=== PATIENT | male | born 1965 | race Caucasian/White ===

== ENCOUNTER 2024-04-20 14:51 | Outpatient (OUT) | payer OTHER, SELFPAY | END 2024-04-20 14:52 | disposition home or self-care (01) | LOC: PST 14:52 | PROVIDERS: Visit Provider Surgery | DX: Z01.818 Encounter for other preprocedural examination (principal); Z12.11 Encounter for screening for malignant neoplasm of colon ==

== ENCOUNTER 2024-04-28 06:33 | Day surgery (SDC) | payer OTHER, SELFPAY ==
--- OUTSIDE RECORDS SUMMARY | 2024-04-28 06:39 | XMS_ITS | CCD ---
Author Organization [facility] Care Team Providers Care Fifth Grade Teacher Name Role Phone GE ODELL Consulting Unavailable OMKAR OLIVIER Admitting Unavailable OMKAR OLIVIER Attending Unavailable OMKRA OLIVIER Consulting Unavailable WILLIAM ANDRADE Consulting Unavailable HERNANDEZ MELCHOR Consulting Unavailable STEPHANIE ODELL Consulting Unavailable AMY ELLINGTON Primary Care Physician Massiel Philippe Unavailable DO Amy Ellington Primary Care Provider ZEHRA Gutierrez Attending Provider Shira Gutierrez Unavailable Amy Ellington Primary Care Unavaila Shira Vallejo Attending Unavailable Shira Gutierrez Admitting Unavailable Elinor Perea Attending Unavailable Elinor Perea Attending Unavailable Medications Current Medications Medication Drug Class(es) Dates Sig (Normalized) Sig (Original) [id number] 200 actuat albuterol 0.09 mg/actuat metered dose inhaler (1 source) beta2-Adrenergic Agonist Start: 2 take 2 puff(s) by inhalation every four hours as needed Albuterol Sulfate HFA 108 (90 Base) MCG/ACT 2 puffs as needed Inhalation every 4 hrs Jan, Active azithromycin 250 mg oral tablet (1 source) Macrolide Antimicrobial Start: 2 Azithromycin 250 MG 2 tablets on the first day, then 1 tablet daily for 4 days Orally Once a day for 5 day(s) Jan, Active buPROPion (1 source) Aminoketone Wellbutrin Activ e Fiber (2 sources) Start: 2 take 1 tablet by mouth four times daily Fiber Tabs mg, Oral, QID, Refills(s) 0, Constipation Start Date: 11/02/21 Status: Ordered methylPREDNISolone 4 mg oral tablet (2 sources) Corticosteroid Start: 5 methylPREDNISolone 4 MG as directed Orally Once a day for 6 days Jan, Active Multivitamins and Minerals (2 sources) Start: 7 Multivitamins and Minerals See Instructions, Refill(s) 0, Prophylaxis Start Date: 06/12/17 Status: Ordered naproxen 500 mg oral tablet (1 source) Nonsteroidal Anti-inflammatory Drug Start: 3 take 1 tablet by mouth every twelve hours at mealtime as needed Naproxen 500 MG 1 tablet with food or milk as needed Orally every 12 hrs for 7 days Dec, Active Completed/Discontinued Medications Medication Drug Class(es) Dates Sig (Normalized) Sig (Original) Ketorolac (2 sources) Nonsteroidal Anti-inflammatory Drug, Cyclooxygenase Inhibitor Start: 02-28-2015 Toradol per 15 mg Jan, 60 mg Toradol 30 mg/ml (1 source) Start: 12-20-2022 Toradol 30 mg/ml Dec, 30 mg triamcinolone acetonide 40 mg/ml injectable suspension (1 source) Corticosteroid Start: 12-20-2022 Kenalog-40 Dec, 40 mg Problems Active Problems Problem Classification Problem Date Documented Da te Episodic/Chronic Anal and rectal conditions (2 sources) Rectal polyp; Translations: [Rectal polyp] Onset: 01-02-2022 Episodic Asthma (1 source) Unspecified asthma with status asthmaticus; Translations: [UNS ASTHMA W/STATUS ASTHMATICUS] Onset: 08-31-2019 Chronic Fever of unknown origin (1 source) Fever, unspecified; Translations: [FEVER UNSPECIFIED] Onset: 08-31-2019 Episodic Fluid and electrolyte disorders (1 source) Dehydration; Translations: [DEHYDRATION] Onset: 08-31-2019 Episodic Hemorrhoids (2 sources) Hemorrhoids; Translations: [Unspecified hemorrhoids] Onset: 01-02-2022 Episodic Other and unspecified benign neoplasm (3 sources) Polyp of colon; Translations: [Polyp of colon] Onset: 12-14-2021 Episodic Other and unspecified benign neoplasm (2 sources) History of polyp of colon 11-02-2021 Episodic Other injuries and conditions due to external causes (2 sources) Injury, unspecified, initial encounter; Translations: [Injury, unspecified, initial encounter] Onset: 12-20-2022 Episodic Other lower respiratory disease (3 sources) Cough; Translations: [COUGH] Onset: 08-27-2019 Episodic Other lower respiratory disease (1 source) Hypoxemia; Translations: [HYPOXEMIA] Onset: 08-31-2019 Episodic Other lower respiratory disease (1 source) Pleurodynia; Translations: [Pleurodynia] Onset: 12-20-2022 Episodic Pneumonia (except that caused by tuberculosis or sexually transmitted disease) (1 source) Pneumonia, unspecified organism; Translations: [PNEUMONIA UNSPECIFIED ORGANISM] Onset: 08-31-2019 Episodic Substance-related disorders (1 source) Nicotine dependence, cigarettes, uncomplicated; Translations: [NICOTINE DEPEND CIGARETTES UNCOMP] Onset: 08-31-2019 Chronic Superficial injury; contusion (1 source) Contusion of right front wall of thorax, initial encounter Episodic Past or Other Problems Problem Classification Problem Date Documented Da te Episodic/Chronic Chronic obstructive pulmonary disease and bronchiectasis (1 source) Bronchitis, not specified as acute or chronic Onset: 02-15-2022 Resolved: 02-15-2022 Episodic Results Test Name Value Interpretation Reference Range Facility XR ribs RT min 3V w CXR1V*on 12-20-2022 XR ribs RT min 3V w CXR1V* [facility] [employer] Other XR ribs RT min 3V w CXR1V* [facility] [employer] Other XR ribs RT min 3V w CXR1V* [address] [place] [address] [employer] Other XR ribs RT min 3V w CXR1V* [place] [address] [employer] Other XR ribs RT min 3V w CXR1V* XRay Report [employer] Other XR ribs RT min 3V w CXR1V* Signed [employer] Other XR ribs RT min 3V w CXR1V* Patient: Phu Dejesus MR#: [id number] [employer] Other XR ribs RT min 3V w CXR1V* 97 [employer] Other XR ribs RT min 3V w CXR1V* : 1965 Acct:[id number] [employer] Other XR ribs RT min 3V w CXR1V* Age/Sex: 57 / M ADM Date: 12/20/22 [employer] Other XR ribs RT min 3V w CXR1V* Loc: [facility] Room: Type: [facility] [employer] Other XR ribs RT min 3V w CXR1V* Attending Dr: Shira Gutierrez [facility] [employer] Other XR ribs RT min 3V w CXR1V* Copies to: Shira Gutierrez DOCUMENTATION IMPROVEMENT SPECIALIST [employer] Other XR ribs RT min 3V w CXR1V* Ordering Provider: Shira Gutierrez APRN [employer] Other XR ribs RT min 3V w CXR1V* Date of Service: 12/20/22 [employer] Other XR ribs RT min 3V w CXR1V* XR/XR ribs RT min 3V w CXR1V*: Injury [employer] Other XR ribs RT min 3V w CXR1V* PA CHEST WITH RIGHT RIBS: [employer] Other XR ribs RT min 3V w CXR1V* CLINICAL HISTORY: Patient fell in the shower 2 days ago and has continued right lower anterior rib [employer] Other XR ribs RT min 3V w CXR1V* pain, greater with movement or cough. [employer] Other XR ribs RT min 3V w CXR1V* COMPARISON: None [employer] Other XR ribs RT min 3V w CXR1V* The chest film shows no infiltrate, effusion or pneumothorax. The cardiac, hilar and mediastinal [employer] Other XR ribs RT min 3V w CXR1V* silhouettes are within normal limits. No vascular congestion is seen. [employer] Other XR ribs RT min 3V w CXR1V* AP and both oblique views of the right ribs show no obvious acute displaced fractures or bony [employer] Other XR ribs RT min 3V w CXR1V* destruction. [employer] Other XR ribs RT min 3V w CXR1V* XR/XR ribs RT min 3V w CXR1V* [employer] Other XR ribs RT min 3V w CXR1V* IMPRESSION: [employer] Other XR ribs RT min 3V w CXR1V* NO DEFINITE ACUTE FINDINGS. [employer] Other XR ribs RT min 3V w CXR1V* Impression dictated by: Mavis Goff M.D.12/20/2022 11:51 AM [employer] Other XR ribs RT min 3V w CXR1V* Dictation Location: [place] [address] [employer] Other XR ribs RT min 3V w CXR1V* Transcribed By: ROBBIN 12/20/22 [facility] [employer] Other XR ribs RT min 3V w CXR1V* Dictated By: Mavis Goff MD 12/20/22 1148 [employer] Other XR ribs RT min 3V w CXR1V* Signed By: [employer] Other XR ribs RT min 3V w CXR1V* 12/20/22 [facility] [employer] Other XR ribs RT min 3V w CXR1V* [facility] [place] [address] [place] [address] XRay Report Signed Patient: Phu Dejesus JR MR#: [id number] 97 : 1965 Acct:[id number] Age/Sex: 57 / M ADM Date: 12/20/22 Loc: [facility] Room: Type: [facility] Attending Dr: Shira Gutierrez APRN Copies to: Shira Gutierrez APRN Ordering Provider: Shira Gutierrez APRN Date of Service: 12/20/22 XR/XR ribs RT min 3V w CXR1V*: Injury PA CHEST WITH RIGHT RIBS: CLINICAL HISTORY: Patient fell in the shower 2 days ago and has continued right lower anterior rib pain, greater with movement or cough. COMPARISON: None The chest film shows no infiltrate, effusion or pneumothorax. The cardiac, hilar and mediastinal silhouettes are within normal limits. No vascular congestion is seen. AP and both oblique views of the right ribs show no obvious acute displaced fractures or bony destruction. XR/XR ribs RT min 3V w CXR1V* IMPRESSION: NO DEFINITE ACUTE FINDINGS. Impression dictated by: Mavis Goff M.D.12/20/2022 11:51 AM Dictation Location: [place] [address] Transcribed By: [facility] 12/20/22 1151 Dictated By: Mavis Goff MD 12/20/22 1148 Signed By: 12/20/22 1151 [facility] Reminderson 01-03-2022 Reminders -- From: Elinor Perea CNP To: Yokasta Peterson; Sent: 01/02/2022 15:33:05 EDT Show up: 01/02/2022 15:33:00 EDT Subject: Ambulatory Reminder Reminder/Recall Colonoscopy in 2024. [facility] Gastroenterology Office/Clin ic Noteon 01-02-2022 Gastroenterology Office/Clinic Note Chief Complaint Review results HPI Staff Patient is here today to review colonoscopy results. History of Present Illness Patient is a 56-year-old male who presents for follow-up from colonoscopy completed 12/14/[address] Fair. Patient with history of colon polyps. Colonoscopy completed 12/14/[address] Fair revealed 2 tubular adenomas removed from ascending colon, 2 tubular adenomas removed from rectum, tubular adenoma removed from transverse colon, hemorrhoids - Dr. Fair recommended for patient to have repeat colonoscopy in 3 years (2024). During today's visit, patient reports he is doing well. Denies having any GI complaints. Review of Systems ROS - Provider Constitutional: no fever, no chills. Skin: no Jaundice. ENMT: Denies dysphagia and heartburn. Respiratory: no shortness of breath. Cardiovascular: no chest pain. Gastrointestinal: no nausea, no vomiting, no diarrhea, no GI bleeding. Physical Exam Vitals & Measurements T: 36.2 ?C(Temporal Artery) HR: 91(Peripheral) BP: 134/84 SpO2: 98% HT: 169 cm HT: 169.0 cm WT: 81.6 kg WT: 81.6 kg BMI: 28.57 General: Well developed, well nourished, in no acute distress Head: Normocephalic/atrau matic Lungs: Normal respiratory effort and clear to auscultation Cardio: Regular rate and rhythm, normal S1 and S2, no murmur, no rub Abdomen: Soft, non-distended, non-tender. Normoactive bowel sounds present in all 4 abdominal quadrants, bilaterally. Mental Status: Alert and oriented x3. Normal mood and affect Assessment/Plan BP elevated at 142/89, BP rechecked by staff and stable at 134/84. 1. Colon polyps (K63.5: Polyp of colon) Colonoscopy completed 12/14/[address] Fair revealed 2 tubular adenomas removed from ascending colon, 2 tubular adenomas removed from rectum, tubular adenoma removed from transverse colon, hemorrhoids. Patient to have repeat colonoscopy in 3 years (2024). Educated regarding use of fiber daily for hemorrhoids and to potentially assist in reducing risk of future colon polyps. 2. Rectal polyp (K62.1: Rectal polyp) Same as above plan of care. See #1. 3. Hemorrhoids (K64.9: Unspecified hemorrhoids) Same as above plan of care. See #1. Follow-up With When Contact Information Elinor Perea CNP Within 1 year, only if needed Additional Instructions: Patient Education High-Fiber Diet Hemorrhoids Colon Polyps Problem List/Past Medical History Ongoing Colon polyps Hemorrhoids History of colon polyps Rectal polyp Historical No qualifying data Procedure/Surgical History Colonoscopy (12/14/2021). Medications Fiber Tabs, Oral, QID Multivitamins and Minerals, See Instructions Allergies No Known Allergies Social History Tobacco 10 or more cigarettes (1/2 pack or more)/day in last 30 days Tobacco Use:. Never Smokeless Tobacco Use:. Cigarettes, 01/02/2022 Family History Family history is negative Immunizations Vaccine Date Status influenza virus vaccine, inactivated 06/02/2021 Recorded Normal [facility] Comment on above: Result Comment: Elec tronically Signed By: Eliazar ASTORGA, Elinor Huntley\.br\Date and Time Signed: 01/02/22 15:36 EDT Patient Educationon 01-03-20 Patient Education Endocrinology High-Fiber Diet Fiber, also called dietary fiber, is a type of carbohydrate that is found in fruits, vegetables, whole grains, and beans. A high-fiber diet can have many health benefits. Your health care provider may recommend a high-fiber diet to help: ? Prevent constipation. Fiber can make your bowel movements more regular. ? Lower your cholesterol. ? Relieve the following conditions: ? Swelling of veins in the anus (hemorrhoids). ? Swelling and irritation (inflammation) of specific areas of the digestive tract (uncomplicated diverticulosis). ? A problem of the large intestine (colon) that sometimes causes pain and diarrhea (irritable bowel syndrome, IBS). ? Prevent overeating as part of a weight-loss plan. ? Prevent heart disease, type 2 diabetes, and certain cancers. What is my plan? The recommended daily fiber intake in grams (g) includes: ? 38 g for men age 50 or younger. ? 30 g for men over age 50. ? 25 g for women age 50 or younger. ? 21 g for women over age 50. You can get the recommended daily intake of dietary fiber by: ? Eating a variety of fruits, vegetables, grains, and beans. ? Taking a fiber supplement, if it is not possible to get enough fiber through your diet. What do I need to know about a high-fiber diet? ? It is better to get fiber through food sources rather than from fiber supplements. There is not a lot of research about how effective supplements are. ? Always check the fiber content on the nutrition facts label of any prepackaged food. Look for foods that contain 5 g of fiber or more per serving. ? Talk with a diet and nutrition faculty member (dietitian) if you have questions about specific foods that are recommended or not recommended for your medical condition, especially if those foods are not listed below. ? Gradually increase how much fiber you consume. If you increase your intake of dietary fiber too quickly, you may have bloating, cramping, or gas. ? Drink plenty of water. Water helps you to digest fiber. What are tips for following this plan? ? Eat a wide variety of high-fiber foods. ? Make sure that half of the grains that you eat each day are whole grains. ? Eat breads and cereals that are made with whole-grain flour instead of refined flour or white flour. ? Eat brown rice, bulgur wheat, or millet instead of white rice. ? Start the day with a breakfast that is high in fiber, such as a cereal that contains 5 g of fiber or more per serving. ? Use beans in place of meat in soups, salads, and pasta dishes. ? Eat high-fiber snacks, such as berries, raw vegetables, nuts, and popcorn. ? Choose whole fruits and vegetables instead of processed forms like juice or sauce. What foods can I eat? Fruits Berries. Pears. Apples. Oranges. Avocado. Prunes and raisins. Dried figs. Vegetables Sweet potatoes. Spinach. Kale. Artichokes. Cabbage. Broccoli. Cauliflower. Green peas. Carrots. Squash. Grains Whole-grain breads. Multigrain cereal. Oats and oatmeal. Brown rice. Barley. Bulgur wheat. Millet. Quinoa. Bran muffins. Popcorn. [place] wafer crackers. Meats and other proteins [place], kidney, and mccord beans. Soybeans. Split peas. Lentils. Nuts and seeds. Dairy Fiber-fortified yogurt. Beverages Fiber-fortified soy milk. Fiber-fortified orange juice. Other foods Fiber bars. The items listed above may not be a complete list of recommended foods and beverages. Contact a dietitian for more options. What foods are not recommended? Fruits Fruit juice. Cooked, strained fruit. Vegetables Fried potatoes. Canned vegetables. Well-cooked vegetables. Grains White bread. Pasta made with refined flour. White rice. Meats and other proteins Fatty cuts of meat. Fried chicken or fried fish. Dairy Milk. Yogurt. Cream cheese. Sour cream. Fats and oils [place]. Beverages Soft drinks. Other foods Cakes and pastries. The items listed above may not be a complete list of foods and beverages to avoid. Contact a dietitian for more information. Summary ? Fiber is a type of carbohydrate. It is found in fruits, vegetables, whole grains, and beans. ? There are many health benefits of eating a high-fiber diet, such as preventing constipation, lowering blood cholesterol, helping with weight loss, and reducing your risk of heart disease, diabetes, and certain cancers. ? Gradually increase your intake of fiber. Increasing too fast can result in cramping, bloating, and gas. Drink plenty of water while you increase your fiber. ? The best sources of fiber include whole fruits and vegetables, whole grains, nuts, seeds, and beans. This information is not intended to replace advice given to you by your health care provider. Make sure you discuss any questions you have with your health care provider. Document Released: 08/19/2006 Document Revised: 06/23/2018 Document Reviewed: 06/23/2018 [employer] Patient Education ? 2020 [employer]. Gastro (more content not included)... Normal [facility] SHORT STAY SUMMARYon 019 SHORT STAY SUMMARY SHORT STAY SUMMARY Discharge Date: 08-27-19 CHIEF COMPLAINT: Fever, cough, shortness of breath. HISTORY OF PRESENT ILLNESS: The patient's problems began on Saturday with cough, fever, and chills. He came to the ER influenzae were negative but he was in status asthmaticus and felt to have atypical pneumonia and was put into an observation bed. PAST MEDICAL HISTORY: None. PAST SURGICAL HISTORY: Status post appendectomy. SOCIAL HISTORY: Positive for smoking, occasional ethanol, denies drugs or marijuana. Is employed at [employer]. FAMILY HISTORY: Noncontributory. REVIEW OF SYSTEMS: GENERAL: Is having the fevers and chills. SKIN: No pruritus or icterus. HEENT: No migraines, scintillating scotomata, amaurosis fugax, diplopia, tinnitus, vertigo, epistaxis, sore throat, sore neck. CHEST: Shortness of breath and cough, no sputum production. CARDIOVASCULAR: No history of heart disease. ABDOMEN: No nausea, vomiting, diarrhea, melena, hematochezia. : Denies dysuria, hematuria, or problems starting the stream. EXTREMITIES: No edema. NEURO: No seizures or epilepsy. PHYSICAL EXAM: GENERAL:On admission he was in status asthmaticus, currently WD, WN in no acute distress. SKIN:Pale, good turgor. LYMPH:None palpable. HEENT: Head benign. Eyes benign. TMs clear. Nose clear. Throat clear. CHEST:Shows prolonged expiratory, but no wheezing, rhonchi or rubs, no rales. CARDIOVASCULAR:Hear t rate is still slightly tachycardic at 90. Regular rate and rhythm, no murmurs. Normal and symmetrical peripheral pulses, no JVD. ABDOMEN:Soft. Nondistended. Nontender. No organomegaly. No palpable masses. EXTREMITIES:No edema. NEURO:Grossly within normal limits. ASSESSMENT: 1. The patient with atypical pneumonia, improved overnight. At this point was felt safe to discharge to home. DISCHARGE DIAGNOSIS: 1. Atypical pneumonia. 2. Status asthmaticus. 3. Dehydration. OPERATIONS: None. COMPLICATIONS: None. DISCHARGE CONDITION: Good. DISCHARGE PLAN: ACTIVITY:No work until September 03. FOLLOWUP: He is to see his primary care physician prior to that. MEDICATIONS: He will be on levofloxacin 500 mg once a day for a total of 10 days. Prednisone 30 mg in the morning on Saturday and Saturday, albuterol 1 tsp qh8 for the next three days. He is to return to the hospital if he gets worse and that was explained or as needed and that was explained. [facility] Signed and Approved by: DR OMKAR OLIVIER . 08/31/2019 07:36:00 Normal [facility] CBC AUTO DIFFon 08-26-2019 Basophils (Bld) [#/Vol] 0.0 103/ul Normal 0.0-0.1 [facility] Comment on above: Performed By: #### C BC #### [facility] [address], [place] [address] Clau Gamble Basophils/100 WBC (Bld) 0.2 % Normal 0.2-2.0 [facility] Comment on above: Performed By: #### C BC #### [facility] [address] [place], [place] [id number] Clau Mavis Eosinophils (Bld) [#/Vol] 0.1 103/ul Normal 0.0-0.7 [facility] Comment on above: Performed By: #### C BC #### [facility] [address] [place], [place] [id number] Clau Mavis Eosinophils/100 WBC (Bld) 0.6 % Critically low 0.9-7.0 [facility] Comment on above: Performed By: #### C BC #### [facility] [address] [place], [place] [id number] Clau Mavis Erythrocyte distribution width (RBC) [Ratio] 12.4 % Normal 11.0-15.0 [facility] Comment on above: Performed By: #### C BC #### [facility] [address] [place] [address] Clau Mavis Hematocrit (Bld) [Volume fraction] 38.4 % Critically low 42.0-54.0 [facility] Comment on above: Performed By: #### C BC #### [facility] [address] [place], [place] [id number] Clau Mavis Hemoglobin (Bld) [Mass/Vol] 13.4 g/dL Critically low 14.0-18.0 [facility] Comment on above: Performed By: #### C BC #### [facility] [address] [place] [address] Clau Mavis IG # 0.03 10e3/ul Normal 0.00-0.03 [facility] Comment on above: Performed By: #### C BC #### [facility] [address] [place], [place] [id number] Clau Mavis IG % 0.3 % Normal 0.0-0.5 [facility] Comment on above: Performed By: #### C BC #### [facility] [address] [place], [place] [id number] Clau Mavis Lymphocytes (Bld) [#/Vol] 0.7 103/ul Critically low 1.2-3.8 [facility] Comment on above: Performed By: #### C BC #### [facility] [address], [place] [address] Clau Mavis Lymphocytes/100 WBC (Bld) 8.1 % Critically low 20.5-60.0 [facility] Comment on above: Performed By: #### C BC #### [facility] [address], [place] [address] Clau Mavis MANUAL DIFF REQ NO Normal [facility] Comment on above: Performed By: #### C BC #### [facility] [address], [place] [address] Clau Mavis MCH (RBC) [Entitic mass] 30.2 pg Normal 25.9-34.0 [facility] Comment on above: Performed By: #### C BC #### [facility] [address] [place] [id number] Clauemelia Kearneyen MCHC (RBC) [Mass/Vol] 34.9 g/dL Normal 29.9-35.2 [facility] Comment on above: Performed By: #### C BC #### [facility] [address], [place] [address] Clau Mavis MCV (RBC) [Entitic vol] 86.5 fL Normal 80.0-94.0 [facility] Comment on above: Performed By: #### C BC #### [facility] [address], [place] [address] Clau Mavis Monocytes (Bld) [#/Vol] 1.2 103/ul Critically high 0.3-0.8 [facility] Comment on above: Performed By: #### C BC #### [facility] [address], [place] [address] Clau Mavis Monocytes/100 WBC (Bld) 13.1 % Critically high 1.7-12.0 [facility] Comment on above: Performed By: #### C BC #### [facility] [address], [place] [address] Clau Mavis Neutrophils (Bld) [#/Vol] 6.9 103/ul Critically high 1.4-6.5 [facility] Comment on above: Performed By: #### C BC #### [facility] [address] [place] [id number] Clau Gamble Neutrophils/100 WBC (Bld) 77.7 % Critically high 43.0-75.0 [facility] Comment on above: Performed By: #### C BC #### [facility] [address] [place], [place] [id number] Clau Gamble Platelet mean volume (Bld) [Entitic vol] 9.2 fL Critically low 9.5-13.5 [facility] Comment on above: Performed By: #### C BC #### [facility] [address] [address] [place], [place] [id number] Clau Gamble Platelets (Bld) [#/Vol] 177 103/ul Normal 150-450 [facility] Comment on above: Performed By: #### C BC #### [facility] [address] [place], [place] [id number] Clau Gamble RBC (Bld) [#/Vol] 4.44 106/ul Critically low 4.70-6.10 Th [facility] [place] Comment on above: Performed By: #### C BC #### [facility] [address] [place], [place] [id number] Clau Gamble WBC (Bld) [#/Vol] 8.8 103/ul Normal 4.0-11.0 [facility] Comment on above: Performed By: #### C BC #### [facility] [address] [place], [place] [id number] Clau Gamble D-DIMERon 08-26-2019 D-DIMER COMMENTS SEE BELOW Normal [facility] Comment on above: Result Comment: Incr eases in D-Dimer concentration observed with thromboembolic events can be variable due to localization, size, and age of the thrombus. Therefore, a thromboembolic event cannot be diagnosed with certainty on the basis of the reference range. D-Dimers may also be elevated for a variety of disorders including: advanced age, , coronary disease, cancer, liver disease, infection, inflammation, hematoma, DIC, trauma, post-surgery, diabetes, thrombolytic or anticoagulant therapy, stress, and generalizd hospitalization. Performed By: #### D DIM #### [facility] [address] [place] [address] Clau Gamble Fibrin D-dimer FEU IA (Bld) [Mass/Vol] 0.27 ug/mL Normal 0.19-0.50 [facility] Comment on above: Performed By: #### D DIM #### [facility] [address] [place] [address] Clau Gamble INFLUENZA A AND B AGon 08-26 INFLUANEGH SEE BELOW Normal [facility] Comment on above: Result Comment: Nega tive for Flu A protein angiten. Infection due to Flu A cannot be ruled out. Flu A angiten in the sample may be below the detection limit of the test. Performed By: #### I NFLUAB #### [facility] [address] [place] [address] Clau Gamble INFLUBNEGH SEE BELOW Normal [facility] Comment on above: Result Comment: Nega tive for Flu B protein antigen. Infection due to Flu B cannot be ruled out. Flu B antigen in the sample may be below the detection limit of the test. Performed By: #### I NFLUAB #### [facility] [address] [place] [address] Clau Gamble INFLUENZA A AG Negative Normal NEGATIVE SEE COMMENT [facility] Comment on above: Performed By: #### I NFLUAB #### [facility] [address] [place] [address] Clau Gamble INFLUENZA B AG Negative Normal NEGATIVE SEE COMMENT [facility] Comment on above: Performed By: #### I NFLUAB #### [facility] [address] [place] [address] Clau Gamble INTERNAL CONTROLS Within Normal Limits Normal Within Normal Limits [facility] Comment on above: Performed By: #### I NFLUAB #### [facility] [address] [place] [address] Clau Gamble LACTATE/LACTIC ACIDon 2018 Lactate [Moles/Vol] 1.2 mmol/L Normal 0.7-2.1 [facility] Comment on above: Performed By: #### L ACT #### [facility] [address] [place] [address] Clau Gamble PROCALCITONINon 08-26-2019 PCT header 1 SEE BELOW Normal [facility] Comment on above: Result Comment: PCT <0.5ng/mL: Systemic infection (sepsis) is not likely, local bacterial infection possible, low risk for progression to severe systemic infection (severe sepsis) Performed By: #### P RL #### [facility] [address] [place] [address] Clauemelia Kearneyen PCT header 2 SEE BELOW Normal [facility] Comment on above: Result Comment: PCT >/=0.5 and <2 ng/mL: Systemic infection (sepsis) is possible, moderate risk for progression to severe systemic infection (severe sepsis) Performed By: #### P RL #### [facility] [address] [place] [address] Clauemelia Gamble PCT header 3 SEE BELOW Normal [facility] Comment on above: Result Comment: PCT >/=2.0 and <10 ng/mL: Systemic infection (sepsis) is likely, unless other causes are known, high risk for progession to severe systemic infection(severe sepsis) Performed By: #### P RL #### [facility] [address] [place] [address] Clauemleia Gamble PCT header 4 SEE BELOW Normal [facility] Comment on above: Result Comment: PCT >/= 10 ng/mL: Important systemic inflammatory response almost exclusively due to severe bacterial sepsis or septic shock, high likelihood of severe sepsis or septic shock Performed By: #### P RL #### [facility] [address] [place] [address] Clau Gamble PROCALCITONIN <0.05 Normal 0.00-0.50 [facility] Comment on above: Performed By: #### P RL #### [facility] [address] [place] [address] Clau Gamble PROF 14(COMP METB)on 019 Albumin [Mass/Vol] 3.6 g/dL Normal 3.5-5.0 [facility] Comment on above: Performed By: #### T ROP, CMP #### [facility] [address] [id number] Clau Mavis Albumin/Globulin [Mass ratio] 1.2 {ratio} Normal [facility] Comment on above: Performed By: #### T ROP, CMP #### [facility] [address] [id number] Clau Mavis ALP [Catalytic activity/Vol] 62 U/L Normal 38-126 [facility] Comment on above: Performed By: #### T ROP, CMP #### [facility] [address] [address] Clau Mavis ALT [Catalytic activity/Vol] 30 U/L Normal 21-72 [facility] Comment on above: Performed By: #### T ROP, CMP #### [facility] [address] [place] [address] Clau Mavis Anion gap [Moles/Vol] 13.3 mmol/L Normal [facility] Comment on above: Performed By: #### T ROP, CMP #### [facility] [address] [place] [address] Clau Mavis AST [Catalytic activity/Vol] 22 U/L Normal 17-59 [facility] Comment on above: Performed By: #### T ROP, CMP #### [facility] [address] [place] [address] Clau Mavis Bilirubin Ql (U) 0.3 mg/dL Normal 0.2-1.3 [facility] Comment on above: Performed By: #### T ROP, CMP #### [facility] [address] [place], [place] [address] Clau Mavis Calcium [Mass/Vol] 9.0 mg/dL Normal 8.4-10.2 [facility] Comment on above: Performed By: #### T ROP, CMP #### [facility] [address] [place], [place] [address] Clau Mavis Chloride [Moles/Vol] 100 mmol/L Normal 98-107 [facility] Comment on above: Performed By: #### T ROP, CMP #### [facility] [address] [address] Clau Mavis CO2 [Moles/Vol] 24.9 mmol/L Normal 22.0-30.0 [facility] Comment on above: Performed By: #### T ROP, CMP #### [facility] [address] [place] [address] Clau Mavis Creatinine [Mass/Vol] 1.18 mg/dL Normal 0.66-1.25 [facility] Comment on above: Performed By: #### T ROP, CMP #### [facility] [address] [place] [address] Clau Mavis EGFR-AF DOMINICAN >60 Normal >=60 [facility] Comment on above: Performed By: #### T ROP, CMP #### [facility] [address] [place] [address] Clau Mavis EGFR-NON AF DOMINICAN >60 Normal >=60 [facility] Comment on above: Performed By: #### T ROP, CMP #### [facility] [address] [place] [address] Clau Mavis Globulin (S) [Mass/Vol] 3.0 g/dL Normal [facility] Comment on above: Performed By: #### T ROP, CMP #### [facility] [address] [place] [address] Clau Mavis Glucose [Mass/Vol] 101 mg/dL Normal 74-106 [facility] Comment on above: Performed By: #### T ROP, CMP #### [facility] [address] [place] [address] Clau Mavis Potassium [Moles/Vol] 4.2 mmol/L Normal 3.4-5.0 [facility] Comment on above: Performed By: #### T ROP, CMP #### [facility] [address] [place] [address] Clau Mavis Protein [Mass/Vol] 6.6 g/dL Normal 6.1-8.2 [facility] Comment on above: Performed By: #### T ROP, CMP #### [facility] [address] [place] [address] Clau Mavis Sodium [Moles/Vol] 134 mmol/L Critically low 137-145 [facility] Comment on above: Performed By: #### T SURI, CMP #### [facility] [address] [id number] Clau Gamble Urea nitrogen [Mass/Vol] 15.0 mg/dL Normal 9.0-20.0 [facility] Comment on above: Performed By: #### T SURI, CMP #### [facility] [address] [id number] Clau Gamble Urea nitrogen/Creatinine [Mass ratio] 12.7 mg/mg Normal [facility] Comment on above: Performed By: #### T SURI, CMP #### [facility] [address] [place], [place] [address] Clau Gamble TROPONIN - Ion 08-26-2019 Troponin I.cardiac [Mass/Vol] ng/mL Normal <=0.034 [facility] Comment on above: Performed By: #### Natalia MCCORD, CMP #### [facility] [address] [place], [place] [address] Clau Gamble Troponin I.cardiac [Mass/Vol] SEE BELOW Normal [facility] Comment on above: Result Comment: <0.0 34 ng/ml NEGATIVE 0.034-0.119 INDETERMINATE 0.120 AMI CUT OFF Performed By: #### T SURI, CMP #### [facility] [address] [place], [place] [address] Clau Gamble XR CHEST 2 Von 08-26-2019 XR CHEST 2 V Patient: PHU DEJESUS Exam Date: 08/26/2019 : 1965 Gender:M Ordering : SHELLEY ROSA Admission #: [id number] Family : DR AMY ELLINGTON M.D. Order #: [id number] CLICK HERE TO VIEW EXAM RADIOLOGY REPORT PROCEDURE: RADIOGRAPH CHEST 2 VIEWS COMPARISON: None. INDICATIONS: Acute cough and fever for 1 day FINDINGS: LUNGS: No significant pulmonary parenchymal abnormalities. VASCULATURE: No increased pulmonary vasculature. PLEURA: No pneumothorax, effusion, or pleural thickening. CARDIAC: No cardiomegaly or cardiac silhouette abnormality. MEDIASTINUM: No visible mass or adenopathy. BONES: No fracture or visible bone lesion. OTHER: Negative. CONCLUSION: No acute disease. Dictated by: William Andrade M.D. on 08/27/2019 at 00:11 Approved by: William Andrade M.D. on 08/27/2019 at 00:13 Normal [facility] Vital Signs Date Time Vital Sign Value Performing Clinician Facility 12-20-2022 11:50-0400 Body height 167.64 cm Shira Gutierrez Other [facility] Other 12-20-2022 11:50-0400 Body mass index (BMI) [Ratio] 29.53 kg/m2 Shira Gutierrez Other [facility] Other 12-20-2022 11:50-0400 Body temperature 98 [degF] Shira Gutierrez Other [facility] Other 12-20-2022 11:50-0400 Body weight 83.01 kg Shira Gutierrez Other [facility] Other 12-20-2022 11:50-0400 Diastolic blood pressure 93 mm[Hg] Shira Gutierrez Other [facility] Other 12-20-2022 11:50-0400 Respiratory rate 18 /min Shira Gutierrez Other [facility] Other 12-20-2022 11:50-0400 SaO2% (BldA) [Mass fraction] 97 % Shira Gutierrez Other [facility] Other 12-20-2022 11:50-0400 Systolic blood pressure 145 mm[Hg] Shira Gutierrez Other [facility] Other 02-15-2022 13:30-0400 Body height 167.64 cm Massiel Philippe Other [facility] Other 02-15-2022 13:30-0400 Body mass index (BMI) [Ratio] 27.44 kg/m2 Massiel Philippe Other [facility] Other 02-15-2022 13:30-0400 Body temperature 96.6 [degF] Massiel Philippe Other [facility] Other 02-15-2022 13:30-0400 Body weight 77.11 kg Massiel Philippe Other [facility] Other 02-15-2022 13:30-0400 Respiratory rate 18 /min Massiel Philippe Other [facility] Other 02-15-2022 13:30-0400 SaO2% (BldA) [Mass fraction] 94 % Massiel Philippe Other [facility] Other 01-02-2022 15:26-0400 Diastolic blood pressure 84 mm[Hg] Elinor Carrmetz [facility] 01-02-2022 15:26-0400 Mean blood pressure 101 mm[Hg] Elinor Eliazar [facility] 01-02-2022 15:26-0400 Systolic blood pressure 134 mm[Hg] Elinor Eliazar [facility] 01-02-2022 15:22-0400 Blood Pressure Location Elinor Eliazar [facility] 01-02-2022 15:22-0400 Body temperature 97.16 [degF] Elinor Carrmetz [facility] 01-02-2022 15:22-0400 Diastolic blood pressure 89 mm[Hg] Elinor Carrmetz [facility] 01-02-2022 15:22-0400 Heart rate 91 /min Elinoryaneli CarrEliazar [facility] 01-02-2022 15:22-0400 SaO2% (BldA) [Mass fraction] 98 % Elinor Carrmetz [facility] 01-02-2022 15:22-0400 Systolic blood pressure 142 mm[Hg] Elinor Carrmetz [facility] 12-14-2021 10:20-0400 Blood Pressure Location Pizarro SALAM [facility] 12-14-2021 10:20-0400 Diastolic blood pressure 88 mm[Hg] Pizarro SALAM [facility] 12-14-2021 10:20-0400 Heart rate 79 /min Pizarro SALAM [facility] 12-14-2021 10:20-0400 Respiratory rate 19 /min Pizarro SALAM [facility] 12-14-2021 10:20-0400 SaO2% (BldA) [Mass fraction] 98 % Pizarro SALAM [facility] 12-14-2021 10:20-0400 Systolic blood pressure 118 mm[Hg] Pizarro SALAM [facility] 12-14-2021 10:10-0400 Blood Pressure Location Pizarro SALAM [facility] 12-14-2021 10:10-0400 Diastolic blood pressure 82 mm[Hg] Pizarro SALAM [facility] 12-14-2021 10:10-0400 Heart rate 85 /min Pizarro SALAM [facility] 12-14-2021 10:10-0400 Respiratory rate 20 /min Pizarro SALAM [facility] 12-14-2021 10:10-0400 SaO2% (BldA) [Mass fraction] 99 % Pizarro SALAM [facility] 12-14-2021 10:10-0400 Systolic blood pressure 117 mm[Hg] Pizarro SALAM [facility] 12-14-2021 10:05-0400 Blood Pressure Location Pizarro SALAM [facility] 12-14-2021 10:05-0400 Diastolic blood pressure 72 mm[Hg] Pizarro SALAM [facility] 12-14-2021 10:05-0400 Heart rate 77 /min Pizarro SALAM [facility] 12-14-2021 10:05-0400 Respiratory rate 13 /min Pizarro SALAM [facility] 12-14-2021 10:05-0400 SaO2% (BldA) [Mass fraction] 100 % Pizarro SALAM [facility] 12-14-2021 10:05-0400 Systolic blood pressure 98 mm[Hg] Pizarro SALAM [facility] 12-14-2021 09:57-0400 Body temperature 97.34 [degF] Pizarro SALAM [facility] 12-14-2021 09:55-0400 Respiratory rate 16 /min Pizarro SALAM [facility] 12-14-2021 09:50-0400 Respiratory rate 15 /min Pizarro SALAM [facility] 12-14-2021 09:45-0400 Respiratory rate 14 /min Pizarro SALAM [facility] 12-14-2021 09:24-0400 Body temperature 97.16 [degF] Pizarro SALAM [facility] Encounters Encounter Date Encounter Type Care Provider Facility Start: 01-02-2023 [facility] Start: 12-20-2022 Office outpatient visit 15 minutes Shira Gutierrez [facility] Start: 12-20-2022 End: 12-20-2022 ambulatory Amy Ellington Facility:[facility] Start: 12-20-2022 End: 12-20-2022 ambulatory DO Amy Ellington Work Phone: [facility] Work Phone: Start: 12-20-2022 End: 12-20-2022 Patient encounter procedure DO Amy Ellington Work Phone: [facility] Work Phone: Start: 02-15-2022 End: 02-15-2022 ambulatory Massiel Philippe Other [facility] Other Start: 02-15-2022 Office outpatient ne w 20 minutes Massiel Philippe [facility] Start: 01-02-2022 End: 01-03-2022 ambulatory Elinor Perea Facility:[facility] Start: 01-02-2022 End: 01-02-2022 Patient encounter procedure Elinor Perea [facility] Start: 12-14-2021 End: 12-14-2021 Patient encounter procedure Moira FAIR [facility] Start: 08-27-2019 End: 08-27-2019 Patient encounter procedure GE ODELL Facility: Procedures Date Procedure Procedure Detail Performing Clinician Start: 12-20-2022 Plain chest X-ray DO Liyah pradeep Adashrutilelia Work Phone: Start: 12-14-2021 Colonoscopy Moira [facility] Mateo Start: 08-26-2019 End: 08-26-2019 Microscopic examination of blood, culture GE ODELL Comment on above: Performed By: #### B [id number] #### [facility] [address], [place] [address] Clau Gamble Performed By: #### L ACT #### [facility] [address], [place] [address] Clau Gamble Immunizations Immunization Date Immunization Notes Care Provider Deanna venegas 06-02-2021 influenza virus vaccine, unspecified formulation Moira FAIR [facility] Payers Date Payer Category Payer Self-pay 1965 Unknown [id number] 1965 Unknown [id number] 1965 Unknown [id number] 1959 Unknown [id number] Unknown [id number] Unknown [id number] Social History Date Type Detail Facility Start: 11-02-2021 End: 01-02-2022 Tobacco smoking status Heavy tobacco smoker (finding) [facility] Tobacco smoking status Never Kajal [facility] Sex Assigned At Male [facility] Start: 1965 Sex Assigned At Male Hitesh [facility] Evaluation note 12-20-2022 Note Date & Type Note Facility 12-20-2022 Evaluation note Encounter Date Diagnosis Assessment Notes Dec, Injury (ICD-10 - T14.90XA) Dec, Contusion of rib on right side, initial encounter (ICD-10 - S20.211A) XR images and final report reviewed, no bony abnormalities noted. Discussed diagnosis with patient. Kenalog/Toradol injection provided today in office. Will send in Rx of naproxen tablets to use as directed, may use start medication 8 hours after injection. Encourage deep breathing exercises, may take Tylenol in addition for pain relief. Use heat/ice application as needed. Patient to follow-up with PCP if symptoms do not improve in 1 week. Immediate evaluation for shortness of breath, chest pain, or any other new concerning symptoms arise. Patient verbalizes understanding and is agreeable with treatment plan. Dec, Other Rib contusion home care material was printed [facility] Other Evaluation note 02-15-2022 Note Date & Type Note Facility 02-15-2022 Evaluation note Encounter Date Diagnosis Assessment Notes Jan, Bronchitis (ICD-10 - J40) Bronchitis is inflammation of airways, it is not caused from bacteria. Antibiotics will not treat this illness. Take medications as directed. Rest and increase fluid intake. Take meds with food to prevent stomach upset. Use inhaler as needed for SOB. Follow up with primary care provider if symptoms do not improve with treatment plan, although it may take a few weeks for the cough to go away. Smoking increases risk of developing bronchitis. Smoking while sick will cause symptoms to worsen and it will take longer to get better [facility] Other Hospital Discharge instructions 01-02-2022 Note Date & Type Note Facility 01-02-2022 Hospital Discharg e instructions Patient Education 01/02/2022 15:26:38 High-Fiber Diet High-Fiber Diet Fiber, also called dietary fiber, is a type of carbohydrate that is found in fruits, vegetables, whole grains, and beans. A high-fiber diet can have many health benefits. Your health care provider may recommend a high-fiber diet to help: Prevent constipation. Fiber can make your bowel movements more regular. Lower your cholesterol. Relieve the following conditions: ?Swelling of veins in the anus (hemorrhoids). ?Swelling and irritation (inflammation) of specific areas of the digestive tract (uncomplicated diverticulosis). ?A problem of the large intestine (colon) that sometimes causes pain and diarrhea (irritable bowel syndrome, IBS). Prevent overeating as part of a weight-loss plan. Prevent heart disease, type 2 diabetes, and certain cancers. What is my plan? The recommended daily fiber intake in grams (g) includes: 38 g for men age 50 or younger. 30 g for men over age 50. 25 g for women age 50 or younger. 21 g for women over age 50. You can get the recommended daily intake of dietary fiber by: Eating a variety of fruits, vegetables, grains, and beans. Taking a fiber supplement, if it is not possible to get enough fiber through your diet. What do I need to know about a high-fiber diet? It is better to get fiber through food sources rather than from fiber supplements. There is not a lot of research about how effective supplements are. Always check the fiber content on the nutrition facts label of any prepackaged food. Look for foods that contain 5 g of fiber or more per serving. Talk with a diet and nutrition faculty member (dietitian) if you have questions about specific foods that are recommended or not recommended for your medical condition, especially if those foods are not listed below. Gradually increase how much fiber you consume. If you increase your intake of dietary fiber too quickly, you may have bloating, cramping, or gas. Drink plenty of water. Water helps you to digest fiber. What are tips for following this plan? Eat a wide variety of high-fiber foods. Make sure that half of the grains that you eat each day are whole grains. Eat breads and cereals that are made with whole-grain flour instead of refined flour or white flour. Eat brown rice, bulgur wheat, or millet instead of white rice. Start the day with a breakfast that is high in fiber, such as a cereal that contains 5 g of fiber or more per serving. Use beans in place of meat in soups, salads, and pasta dishes. Eat high-fiber snacks, such as berries, raw vegetables, nuts, and popcorn. Choose whole fruits and vegetables instead of processed forms like juice or sauce. What foods can I eat? Fruits Berries. Pears. Apples. Oranges. Avocado. Prunes and raisins. Dried figs. Vegetables Sweet potatoes. Spinach. Kale. Artichokes. Cabbage. Broccoli. Cauliflower. Green peas. Carrots. Squash. Grains Whole-grain breads. Multigrain cereal. Oats and oatmeal. Brown rice. Barley. Bulgur wheat. Millet. Quinoa. Bran muffins. Popcorn. [place] wafer crackers. Meats and other proteins [place], kidney, and mccord beans. Soybeans. Split peas. Lentils. Nuts and seeds. Dairy Fiber-fortified yogurt. Beverages Fiber-fortified soy milk. Fiber-fortified orange juice. Other foods Fiber bars. The items listed above may not be a complete list of recommended foods and beverages. Contact a dietitian for more options. What foods are not recommended? Fruits Fruit juice. Cooked, strained fruit. Vegetables Fried potatoes. Canned vegetables. Well-cooked vegetables. Grains White bread. Pasta made with refined flour. White rice. Meats and other proteins Fatty cuts of meat. Fried chicken or fried fish. Dairy Milk. Yogurt. Cream cheese. Sour cream. Fats and oils [place]. Beverages Soft drinks. Other foods Cakes and pastries. The items listed above may not be a complete list of foods and beverages to avoid. Contact a dietitian for more information. Summary Fiber is a type of carbohydrate. It is found in fruits, vegetables, whole grains, and beans. There are many health benefits of eating a high-fiber diet, such as preventing constipation, lowering blood cholesterol, helping with weight loss, and reducing your risk of heart disease, diabetes, and certain cancers. Gradually increase your intake of fiber. Increasing too fast can result in cramping, bloating, and gas. Drink plenty of water while you increase your fiber. The best sources of fiber include whole fruits and vegetables, whole grains, nuts, seeds, and beans. This information is not intended to replace advice given to you by your health care provider. Make sure you discuss any questions you have with your health care provider. Document Released: 08/19/2006 Document Revised: 06/23/2018 Document Reviewed: 06/23/2018 [employer] Patient Education 2020 [employer]. 01/02/2022 15:26:36 Hemorrhoids Hemorrhoids Hemorrhoids are swollen veins in and around the rectum or anus. There are two types of hemorrhoids: Internal hemorrhoids. These occur in the veins that are just inside the rectum. They may poke through to the outside and become irritated and painful. External hemorrhoids. These occur in the veins that are outside the anus and can be felt as a painful swelling or hard lump near the anus. Most hemorrhoids do not cause serious problems, and they can be managed with home treatments such as diet and lifestyle changes. If home treatments do not help the symptoms, procedures can be done to shrink or remove the hemorrhoids. What are the causes? This condition is caused by increased pressure in the anal area. This pressure may result from various things, including: Constipation. Straining to have a bowel movement. Diarrhea. . Obesity. Sitting for long periods of time. Heavy lifting or other activity that causes you to strain. Anal sex. Riding a bike for a long period of time. What are the signs or symptoms? Symptoms of this condition include: Pain. Anal itching or irritation. Rectal bleeding. Leakage of stool (feces). Anal swelling. One or more lumps around the anus. How is this diagnosed? This condition can often be diagnosed through a visual exam. Other exams or tests may also be done, such as: An exam that involves feeling the rectal area with a gloved hand (digital rectal exam). An exam of the anal canal that is done using a small tube (anoscope). A blood test, if you have lost a significant amount of blood. A test to look inside the colon using a flexible tube with a camera on the end (sigmoidoscopy or colonoscopy). How is this treated? This condition can usually be treated at home. However, various procedures may be done if dietary changes, lifestyle changes, and other home treatments do not help your symptoms. These procedures can help make the hemorrhoids smaller or remove them completely. Some of these procedures involve surgery, and others do not. Common procedures include: Rubber band ligation. Rubber bands are placed at the base of the hemorrhoids to cut off their blood supply. Sclerotherapy. Medicine is injected into the hemorrhoids to shrink them. Infrared coagulation. A type of light energy is used to get rid of the hemorrhoids. Hemorrhoidectomy surgery. The hemorrhoids are surgically removed, and the veins that supply them are tied off. Stapled hemorrhoidopexy surgery. The surgeon nicole the base of the hemorrhoid to the rectal wall. Follow these instructions at home: Eating and drinking Eat foods that have a lot of fiber in them, such as whole grains, beans, nuts, fruits, and vegetables. Ask your health care provider about taking products that have added fiber (fiber supplements). Reduce the amount of fat in your diet. You can do this by eating low-fat dairy products, eating less red meat, and avoiding processed foods. Drink enough fluid to keep your urine pale yellow. Managing pain and swelling Take warm sitz baths for 20 minutes, 3 4 times a day to ease pain and discomfort. You may do this in a bathtub or using a portable sitz bath that fits over the toilet. If directed, apply ice to the affected area. Using ice packs between sitz baths may be helpful. ?Put ice in a plastic bag. ?Place a towel between your skin and the bag. ?Leave the ice on for 20 minutes, 2 3 times a day. General instructions Take ahzq-ruk-pwmvunu and prescription medicines only as told by your health care provider. Use medicated creams or suppositories as told. Get regular exercise. Ask your health care provider how much and what kind of exercise is best for you. In general, you should do moderate exercise for at least 30 minutes on most days of the week (150 minutes each week). This can include activities such as walking, biking, or yoga. Go to the bathroom when you have the urge to have a bowel movement. Do not wait. Avoid straining to have bowel movements. Keep the anal area dry and clean. Use wet toilet paper or moist towelettes after a bowel movement. Do not sit on the toilet for long periods of time. This increases blood pooling and pain. Keep all follow-up visits as told by your health care provider. This is important. Contact a health care provider if you have: Increasing pain and swelling that are not controlled by treatment or medicine. Difficulty having a bowel movement, or you are unable to have a bowel movement. Pain or inflammation outside the area of the hemorrhoids. Get help right away if you have: Uncontrolled bleeding from your rectum. Summary Hemorrhoids are swollen veins in and around the rectum or anus. Most hemorrhoids can be managed with home treatments such as diet and lifestyle changes. Taking warm sitz baths can help ease pain and discomfort. In severe cases, procedures or surgery can be done to shrink or remove the hemorrhoids. This information is not intended to replace advice given to you by your health care provider. Make sure you discuss any questions you have with your health care provider. Document Released: 08/16/2001 Document Revised: 01/15/2020 Document Reviewed: 01/08/2019 [employer] Patient Education 2020 [employer]. 01/02/2022 15:26:35 Colon Polyps Colon Polyps Polyps are tissue growths inside the body. Polyps can grow in many places, including the large intestine (colon). A polyp may be a round bump or a mushroom-shaped growth. You could have one polyp or several. Most colon polyps are noncancerous (benign). However, some colon polyps can become cancerous over time. Finding and removing the polyps early can help prevent this. What are the causes? The exact cause of colon polyps is not known. What increases the risk? You are more likely to develop this condition if you: Have a family history of colon cancer or colon polyps. Are older than 50 or older than 45 if you are . Have inflammatory bowel disease, such as ulcerative colitis or Crohn's disease. Have certain hereditary conditions, such as: ?Familial adenomatous polyposis. ?D[place] syndrome. ?Turcot syndrome. ?Peutz Jeghers syndrome. Are overweight. Smoke cigarettes. Do not get enough exercise. Drink too much alcohol. Eat a diet that is high in fat and red meat and low in fiber. Had childhood cancer that was treated with abdominal radiation. What are the signs or symptoms? Most polyps do not cause symptoms. If you have symptoms, they may include: Blood coming from your rectum when having a bowel movement. Blood in your stool. The stool may look dark red or black. Abdominal pain. A change in bowel habits, such as constipation or diarrhea. How is this diagnosed? This condition is diagnosed with a colonoscopy. This is a procedure in which a lighted, flexible scope is inserted into the anus and then passed into the colon to examine the area. Polyps are sometimes found when a colonoscopy is done as part of routine cancer screening tests. How is this treated? Treatment for this condition involves removing any polyps that are found. Most polyps can be removed during a colonoscopy. Those polyps will then be tested for cancer. Additional treatment may be needed depending on the results of testing. Follow these instructions at home: Lifestyle Maintain a healthy weight, or lose weight if recommended by your health care provider. Exercise every day or as told by your health care provider. Do not use any products that contain nicotine or tobacco, such as cigarettes and e-cigarettes. If you need help quitting, ask your health care provider. If you drink alcohol, limit how much you have: ?0 1 drink a day for women. ? 0 2 drinks a day for men. Be aware of how much alcohol is in your drink. In the [place] one drink equals one 12 oz bottle of beer (355 mL), one 5 oz glass of wine (148 mL), or one 1 oz shot of hard liquor (44 mL). Eating and drinking Eat foods that are high in fiber, such as fruits, vegetables, and whole grains. Eat foods that are high in calcium and vitamin D, such as milk, cheese, yogurt, eggs, liver, fish, and broccoli. Limit foods that are high in fat, such as fried foods and desserts. Limit the amount of red meat and processed meat you eat, such as hot dogs, sausage, johnson, and lunch meats. General instructions Keep all follow-up visits as told by your health care provider. This is important. ?This includes having regularly scheduled colonoscopies. ?Talk to your health care provider about when you need a colonoscopy. Contact a health care provider if: You have new or worsening bleeding during a bowel movement. You have new or increased blood in your stool. You have a change in bowel habits. You lose weight for no known reason. Summary Polyps are tissue growths inside the body. Polyps can grow in many places, including the colon. Most colon polyps are noncancerous (benign), but some can become cancerous over time. This condition is diagnosed with a colonoscopy. Treatment for this condition involves removing any polyps that are found. Most polyps can be removed during a colonoscopy. This information is not intended to replace advice given to you by your health care provider. Make sure you discuss any questions you have with your health care provider. Document Released: 05/15/2005 Document Revised: 12/04/2018 Document Reviewed: 12/04/2018 [employer] Patient Education 2020 [employer] Follow Up Care 12/15/2021 10:18:16 With:Elinor Perea CNP Address: When:1 year only if needed [facility] History general Narrative - Reported 12-31-2021 Note Date & Type Note Facility 12-31-2021 History general N arrative - Reported Type Surgical History appendectomy Surgical History colonoscopy 12/2021 [facility] Other Evaluation + Plan note 12-14-2021 Note Date & Type Note Facility 12-14-2021 Evaluation + Plan note Extrac swati from: Title:Post-anesthesia - General Author:Filipe Mendieta DO Date:12/14/21 Plan Transfer/ Discharge: Condition stable. Extracted from: Title:Pre-anesthesia - Endoscopy Author:Filipe Corona Jr., DO Date:12/14/21 Plan [place] [employer] (ASA) physical status classification: Class II. Anesthetic Preoperative Plan Anesthesia: General. . Anesthetic plan, risks, benefits, and alternatives discussed with the patient and/or family. Patient verbalized understanding. [facility] Hospital Discharge instructions 12-14-2021 Note Date & Type Note Facility 12-14-2021 Hospital Discharg e instructions Patient Education 12/14/2021 10:06:56 Colon Polyps Colon Polyps Polyps are tissue growths inside the body. Polyps can grow in many places, including the large intestine (colon). A polyp may be a round bump or a mushroom-shaped growth. You could have one polyp or several. Most colon polyps are noncancerous (benign). However, some colon polyps can become cancerous over time. Finding and removing the polyps early can help prevent this. What are the causes? The exact cause of colon polyps is not known. What increases the risk? You are more likely to develop this condition if you: Have a family history of colon cancer or colon polyps. Are older than 50 or older than 45 if you are . Have inflammatory bowel disease, such as ulcerative colitis or Crohn's disease. Have certain hereditary conditions, such as: ?Familial adenomatous polyposis. ?D[place] syndrome. ?Turcot syndrome. ?Peutz Jeghers syndrome. Are overweight. Smoke cigarettes. Do not get enough exercise. Drink too much alcohol. Eat a diet that is high in fat and red meat and low in fiber. Had childhood cancer that was treated with abdominal radiation. What are the signs or symptoms? Most polyps do not cause symptoms. If you have symptoms, they may include: Blood coming from your rectum when having a bowel movement. Blood in your stool. The stool may look dark red or black. Abdominal pain. A change in bowel habits, such as constipation or diarrhea. How is this diagnosed? This condition is diagnosed with a colonoscopy. This is a procedure in which a lighted, flexible scope is inserted into the anus and then passed into the colon to examine the area. Polyps are sometimes found when a colonoscopy is done as part of routine cancer screening tests. How is this treated? Treatment for this condition involves removing any polyps that are found. Most polyps can be removed during a colonoscopy. Those polyps will then be tested for cancer. Additional treatment may be needed depending on the results of testing. Follow these instructions at home: Lifestyle Maintain a healthy weight, or lose weight if recommended by your health care provider. Exercise every day or as told by your health care provider. Do not use any products that contain nicotine or tobacco, such as cigarettes and e-cigarettes. If you need help quitting, ask your health care provider. If you drink alcohol, limit how much you have: ?0 1 drink a day for women. ? 0 2 drinks a day for men. Be aware of how much alcohol is in your drink. In the [place] one drink equals one 12 oz bottle of beer (355 mL), one 5 oz glass of wine (148 mL), or one 1 oz shot of hard liquor (44 mL). Eating and drinking Eat foods that are high in fiber, such as fruits, vegetables, and whole grains. Eat foods that are high in calcium and vitamin D, such as milk, cheese, yogurt, eggs, liver, fish, and broccoli. Limit foods that are high in fat, such as fried foods and desserts. Limit the amount of red meat and processed meat you eat, such as hot dogs, sausage, johnson, and lunch meats. General instructions Keep all follow-up visits as told by your health care provider. This is important. ?This includes having regularly scheduled colonoscopies. ?Talk to your health care provider about when you need a colonoscopy. Contact a health care provider if: You have new or worsening bleeding during a bowel movement. You have new or increased blood in your stool. You have a change in bowel habits. You lose weight for no known reason. Summary Polyps are tissue growths inside the body. Polyps can grow in many places, including the colon. Most colon polyps are noncancerous (benign), but some can become cancerous over time. This condition is diagnosed with a colonoscopy. Treatment for this condition involves removing any polyps that are found. Most polyps can be removed during a colonoscopy. This information is not intended to replace advice given to you by your health care provider. Make sure you discuss any questions you have with your health care provider. Document Released: 05/15/2005 Document Revised: 12/04/2018 Document Reviewed: 12/04/2018 [employer] Patient Education 2020 [employer]. 12/14/2021 10:06:56 Colonoscopy, Care After Surgery [facility] (CUSTOM) Colonoscopy Care After Surgery Please read the instructions outlined below and refer to this sheet in the next few weeks. These discharge instructions provide you with general information on caring for yourself after you leave the hospital. Your doctor may also give you specific instructions. While your treatment has been planned according to the most current medical practices available, unavoidable complications occasionally occur. If you have any problems or questions after discharge, please call your doctor. ACTIVITY You may resume your regular activity, but move at a slower pace for the next 24 hours. Take frequent rest periods for the next 24 hours. Walking will help get rid of the air and reduce the bloated feeling in your abdomen (belly). No driving for 24 hours (because of the anesthesia (medicine) used during the test). You may shower. Do not sign any important legal documents or operate any machinery for 24 hours (because of the anesthesia used during the test). NUTRITION Drink plenty of fluids. You may resume your normal diet as instructed by your doctor. Begin with a light meal and progress to your normal diet. Heavy or fried foods are harder to digest and may make you feel nauseated (sick to your stomach). Avoid alcoholic beverages for 24 hours or as instructed. MEDICATIONS You may resume your normal medications unless your doctor tells you otherwise. WHAT YOU CAN EXPECT TODAY Some feelings of bloating in the abdomen. Passage of more gas than usual. Spotting of blood in your stool or on the toilet paper. FOLLOW-UP Your doctor will discuss the results of your test with you. SEEK IMMEDIATE MEDICAL ATTENTION IF: There is more than a spotting of blood in your stool. There is abdominal distention (your abdomen is swollen). There is vomiting. You have a temperature over 101.5 F. There is abdominal pain or discomfort that is severe or gets worse throughout the day. Follow Up Care 11/02/2021 08:54:28 With:Moira FAIR Address: [address] [place] [address]. [address] [place] [address] Business (1) When: Unknown Comments:Call for any problems. [facility] Evaluation + Plan note Note Date & Type Note Facility Evaluation + Plan note Future Appointments Appointment Date:01/02/2023 02:00:00 PM Scheduled Provider:Elinor Perea CNP Location:[facility] Appointment Type:[facility] Follow Up [facility] Evaluation note Note Date & Type Note Facility Evaluation note No assessment information availa [facility] Work Phone: Hospital course Narrative Note Date & Type Note Facility Hospital course Narrative No data available for this section [facility] Summary Purpose Family History No Family History Records FoundNo Family History Records FoundNo Family History Records Found Advance Directives No Advanced Directives Records Found Advance Directive Response Recorded Date/ Time Advance Directives No December 20 023 1:39pm Chief Complaint and Reason for Visit Chief Complaint [id number] Additional Source Comments (unrecognized sect ion and content) No Status Records FoundNo Status Records FoundNo Status Records Found INFORMATION SOURCE (unrecogn ized section and content) DATE CREATED AUTHOR 11/02/2019 [facility] DATE CREATED AUTHOR AUTHOR'S ORGANIZ ATION 12/29/2022 [facility] DATE CREATED AUTHOR AUTHOR'S ORGANIZ ATION 12/31/2022 [facility] REASON FOR VISIT (unrecogniz ed section and content) RED HYUNDAI, SINUS CONGESTIO NRIGHT SIDE RIB PAIN FELLIN SHOWER Care Teams (unrecognized sec tion and content) Team Status: Active Member Role Status Dates Amy Ellington , DO Primary Care Provider Acti ve Team Status: Inactive Member Role Status Dates Amy Ellington , DO Primary Care Provider Acti ve Shira Gutierrez APRN Attending Provider Active Goals (unrecognized section and content) Goals may be documented in a n alternate section FOR RECORDS PERTAINING TO PATIENTS WHO ARE OR HAVE BEEN ENROLLED IN A CHEMICAL DEPENDENCY/SUBSTANCEABUSE PROGRAM, SOME INFORMATION MAY BE OMITTED. This clinical summary was aggregated from multiple sources. Caution should be exercised in using it in the provision of clinical care. This summary normalizes information from multiple sources, and as a consequence, information in this document may materially change the coding, format and clinical context of patient data. In addition, data may be omitted in some cases. CLINICAL DECISIONS SHOULD BE BASED ON THE PRIMARY CLINICAL RECORDS. [facility] [employer] [facility]. provides no warranty or guarantee of the accuracy or completeness of information in this document.
[2024-04-28 06:45] VITALS: BP 117/99; PULSE 95; TEMP 36.2; O2SAT 96; BMI 27.1
[2024-04-28] MEDS: LACTATED RINGER'S SOLUTION 1,000 ML 50 ML IV (07:10)
--- NOTE | 2024-04-28 07:25 | W.PM.PROCNOT ---
Date of procedure: 04/28/24 Pre-op diagnosis: screening c-scope Post-op diagnosis: other (cecal polyp) Procedure: Previous colonoscopy: 2020 procedure: screening The patient was given IV conscious sedation.? The patient's SPO2 remained above 90% throughout the procedure. The colonoscope was inserted per rectum and advanced under direct vision to the cecum without difficulty.? The prep was good.? Findings: Terminal ileum os: normal Cecum/Ascending colon: small subcentimeter polyp removed via cold biopsy forceps Transverse colon: normal Descending/Sigmoid colon: normal Rectum/Anus: examined in normal and retroflexed positions and was normal Withdrawal Time was (minutes): 8 The colon was decompressed and the scope was removed.? The patient tolerated the procedure well. Recommendations/Plan: 1.? Lifestyle and dietary modifications as discussed 2.? F/U Biopsies 3.? F/U in 5 years if path benign 4.? Discussed with the family Anesthesia: MAC Surgeon: Sterling Donaldson Estimated blood loss (mL): 2 Pathology: other (cecal polyp) Condition: stable Disposition: PACU
[2024-04-28 07:47] VITALS: BP 112/78; PULSE 82; O2SAT 96
[2024-04-28 08:02] VITALS: BP 126/92; PULSE 72; O2SAT 95
== END 2024-04-28 08:19 | disposition home or self-care (01) ==
PROVIDERS: PCP Family Medicine; Visit Provider Surgery
PROC: (CPT 811; principal; 2024-04-28 07:30)
DX: Z12.11 Encounter for screening for malignant neoplasm of colon (principal); D12.0 Benign neoplasm of cecum; Z86.010 Personal history of colon polyps; F17.210 Nicotine dependence, cigarettes, uncomplicated
CPT/HCPCS: 45380; 88305; J2704